=== PATIENT | male | born 1940 | race Two or more races ===

== ENCOUNTER 2025-02-17 19:55 | Inpatient (IN) | payer OTHER ==
[~2025-02-17] VITALS: Ht 172.7 cm; Wt 70.8 kg
[2025-02-17] MEDS ORDERED: LOSARTAN POTASS50 MG PO (20:03)
[2025-02-17] MEDS ORDERED: SIMVASTATIN5 MG PO (20:04)
[2025-02-17] MEDS ORDERED: METOPROLOL SUCC25 MG PO (20:04)
[2025-02-17] MEDS ORDERED: TRICOR48 MG PO (20:04)
[2025-02-17] MEDS ORDERED: PLAVIX75 MG PO (20:11)
[2025-02-17] MEDS ORDERED: FAMOTIDINE/PF 20 MG in 0.9 % SODIUM CHLORIDE 8 ML IV PUSH STA (20:29)
[2025-02-17] MEDS ORDERED: 0.9 % SODIUM CHLORIDE 1,000 ML IV SCH (20:30)
[2025-02-17] MEDS ORDERED: METOCLOPRAMIDE HCL 10 MG in DEXTROSE 5 % IN WATER 50 ML IV ONE (20:30)
[2025-02-17] MEDS ORDERED: METOCLOPRAMIDE HCL 5 MG/ML VIAL ONE (20:37)
[2025-02-17] MEDS ORDERED: FAMOTIDINE/PF 20 MG/2 ML VIAL ONE (20:37)
[2025-02-17 21:08] LABS: HEMATOCRIT 46.6 % (39.0-48.0); MEAN CELL VOLUME 92.5 fL (80.0-100.00); MEAN CORPUSCULAR HEMOGLOBIN 29.7 pg (27.00-32.0); MEAN CORPUSCULAR HGB CONC 32.2 g/dl (32.0-36.0); PLATELET COUNT 159 K/uL (150-450); RED BLOOD COUNT 5.04 M/uL (4.00-6.00); RED CELL DISTRIBUTION WIDTH 14.8 % (11.5-14.5)
[2025-02-17 21:45] LABS: ALBUMIN 4.3 gm/dL (3.4-5.0); BILIRUBIN TOTAL 0.9 mg/dL (0.3-1.2); CALCIUM 10.5 mg/dL (8.5-10.1); CREATININE SERUM 1.57 mg/dL (0.70-1.30); GFR 42.51; GLOBULINA 3.5 G/DL (2.4-3.5); POTASSIUM 5.14 mEq/L (3.5-5.1); TOTAL PROTEIN 7.8 gm/dL (6.4-8.2)
[2025-02-17 21:48] LABS: BILIRUBIN,CONJUGATED 0.2 mg/dL (0.0-0.2); BILIRUBIN,UNCONJUGATED 0.7 mg/dL (0.0-0.6)
[2025-02-18] MEDS ORDERED: MINERAL OIL 30 ML BLIST.PACK ONE (01:39)
[2025-02-18] MEDS ORDERED: 0.9 % SODIUM CHLORIDE 1,000 ML IV STA (04:01)
[2025-02-18] MEDS ORDERED: PIPERACILLIN/TAZOBACTAM SODIUM 3.375 GM VIAL IV STA (04:55)
[2025-02-18] MEDS ORDERED: PIPERACILLIN/TAZOBACTAM SODIUM 3.375 GM VIAL IV ONE ×2 (05:00→19:05)
[2025-02-18] MEDS ORDERED: ENALAPRILAT DIHYDRATE 1.25 MG/ML VIAL IV ONE ×2 (15:39→15:45)
[2025-02-18] MEDS ORDERED: PIPERACILLIN/TAZOBACTAM SODIUM 2.25 GM in DEXTROSE 5 % IN WATER 50 ML IV SCH (18:42)
[2025-02-18] MEDS ORDERED: 0.9 % SODIUM CHLORIDE 1,000 ML IV SCH (18:45)
[2025-02-18] MEDS ORDERED: ONDANSETRON HCL 4 MG in 0.9 % SODIUM CHLORIDE 50 ML IV PRN (18:45)
[2025-02-18 20:52] LABS: INR 1.08; PARTIAL THROMBOPLASTIN TIME 25.8 SECONDS (22.0-34.0); PROTHROMBIN TIME 11.7 SECONDS (9.0-11.5)
[2025-02-18 21:02] LABS: PH,URINE 5.5 (5.0-8.0); URINE APPEARANCE Clear; URINE BILIRRUBIN Negative (NEGATIVE); URINE BLOOD Moderate; URINE COLOR Yellow; URINE KETONE Negative (NEGATIVE); URINE LEUKOCYTE Trace; URINE NITRATE Negative; URINE PROTEIN >=1000 (NEGATIVE); URINE UROBILINOGEN 0.2 E.U./dl
[2025-02-18 21:05] LABS: URINE BACTERIA 111.3 uL (0.0-1933); URINE CAST 3.09 uL (0.0-1.40); URINE EPITHELIAL CELLS 31.3 uL (0.0-38.8); URINE WBC 307.5 uL (0.0-23.2)
[2025-02-18 22:03] LABS: URINE GLUCOSE >=1000 MG/DL (NEGATIVE)
[2025-02-18 23:14] VITALS: BP 160/70; O2SAT 96
[2025-02-19] MEDS ORDERED: ENALAPRILAT DIHYDRATE 1.25 MG/ML VIAL IV SCH
[2025-02-19 01:00] VITALS: BP 149/72; O2SAT 97
[2025-02-19] MEDS ORDERED: ENOXAPARIN SODIUM 40 MG/0.4 ML SYRINGE SUBCUTANEO SCH (09:00)
[2025-02-19] MEDS ORDERED: FAMOTIDINE/PF 20 MG in 0.9 % SODIUM CHLORIDE 8 ML IV PUSH SCH (09:00)
[2025-02-19 09:26] VITALS: BP 174/77
[2025-02-19] MEDS ORDERED: METOPROLOL TARTRATE 5MG/5ML AMPUL IV SCH (17:00)
[2025-02-19 19:30] VITALS: BP 176/78
[2025-02-20] VITALS: BP 165/72; O2SAT 98
[2025-02-20] MEDS ORDERED: DIATRIZOATE MEGLUMINE, SODIUM 30 ML BOTTLE PO SCH (06:00)
[2025-02-20 06:31] LABS: HEMATOCRIT 42.4 % (39.0-48.0); HEMOGLOBIN 13.7 g/dL (13-16.00); MEAN CELL VOLUME 93.3 fL (80.0-100.00); MEAN CORPUSCULAR HEMOGLOBIN 30.1 pg (27.00-32.0); MEAN CORPUSCULAR HGB CONC 32.3 g/dl (32.0-36.0); RED BLOOD COUNT 4.55 M/uL (4.00-6.00); RED CELL DISTRIBUTION WIDTH 14.6 % (11.5-14.5)
[2025-02-20 06:34] LABS: PLATELET COUNT 130 K/uL (150-450)
[2025-02-20 06:58] LABS: ALBUMIN 3.2 gm/dL (3.4-5.0); BILIRUBIN TOTAL 1.12 mg/dL (0.3-1.2); CREATININE SERUM 1.65 mg/dL (0.70-1.30); GFR 40.14; GLOBULINA 2.9 G/DL (2.4-3.5); POTASSIUM 5.58 mEq/L (3.5-5.1); TOTAL PROTEIN 6.1 gm/dL (6.4-8.2)
[2025-02-20 09:06] VITALS: BP 157/64; O2SAT 94
[2025-02-20] MEDS ORDERED: DIATRIZOATE MEGLUMINE, SODIUM 30 ML BOTTLE PO NR (11:00)
[2025-02-20] MEDS ORDERED: ALBUTEROL SULFATE 3 ML/2.5 MG AMPUL.NEB IH SCH (13:00)
[2025-02-20] MEDS ORDERED: DEXTROSE 5 % IN WATER 1,000 ML IV SCH (16:30)
[2025-02-20 18:06] VITALS: BP 130/85
[2025-02-20 23:27] VITALS: BP 160/72; O2SAT 98
[2025-02-21 02:57] VITALS: BP 170/67
[2025-02-21 06:07] VITALS: BP 175/78
[2025-02-21 06:41] LABS: CALCIUM 8.4 mg/dL (8.5-10.1); CREATININE SERUM 1.37 mg/dL (0.70-1.30); GFR 49.75; POTASSIUM 4.27 mEq/L (3.5-5.1)
[2025-02-21 08:55] VITALS: BP 168/68
[2025-02-21] MEDS ORDERED: ENALAPRILAT DIHYDRATE 1.25 MG/ML VIAL IV PRN (10:00)
[2025-02-21] MEDS ORDERED: LOSARTAN POTASSIUM 50 MG TABLET PO NR (10:45)
[2025-02-21] MEDS ORDERED: METOPROLOL SUCCINATE 25 MG TAB.SR.24H PO NR (10:45)
[2025-02-21] MEDS ORDERED: ALBUTEROL SULFATE 3 ML/2.5 MG AMPUL.NEB IH SCH (17:00)
[2025-02-21 18:05] VITALS: BP 160/70; O2SAT 100
[2025-02-22 02:42] VITALS: BP 149/70; O2SAT 98
[2025-02-22] MEDS ORDERED: LOSARTAN POTASSIUM 50 MG TABLET PO SCH (09:00)
[2025-02-22] MEDS ORDERED: METOPROLOL SUCCINATE 25 MG TAB.SR.24H PO SCH (09:00)
[2025-02-22] MEDS ORDERED: FAMOTIDINE/PF 20 MG/2 ML VIAL ONE (09:11)
[2025-02-22 10:02] VITALS: BP 138/63; O2SAT 97
[2025-02-22 16:15] VITALS: BP 145/66; O2SAT 99
== END 2025-02-22 16:28 | disposition home or self-care (01) | DRG 389 ==
LOC: ER 19:56 → MEDI 02-18 20:05
PROVIDERS: General Practice; Internal Medicine; ADMIT Internal Medicine; ATTEND Internal Medicine
PROC: BW21ZZZ Computerized Tomography (CT Scan) of Abdomen and Pelvis (ICD-10-PCS; principal; 2025-02-17)
PROC: BW21ZZZ Computerized Tomography (CT Scan) of Abdomen and Pelvis (ICD-10-PCS; 2025-02-20)
PROC: B24BZZZ Ultrasonography of Heart with Aorta (ICD-10-PCS; 2025-02-20)
DX: K56.699 Other intestinal obstruction unspecified as to partial versus complete obstruction (principal); N17.9 Acute kidney failure, unspecified; K29.70 Gastritis, unspecified, without bleeding; E87.6 Hypokalemia; I25.10 Atherosclerotic heart disease of native coronary artery without angina pectoris; Z95.1 Presence of aortocoronary bypass graft; I12.9 Hypertensive chronic kidney disease with stage 1 through stage 4 chronic kidney disease, or unspecified chronic kidney disease; N18.9 Chronic kidney disease, unspecified; I73.9 Peripheral vascular disease, unspecified